=== PATIENT | female | born 1960 | race Caucasian/White ===

== ENCOUNTER 2023-02-06 10:20 | Outpatient (CLI) | payer MEDICAID, SELFPAY ==
[2023-02-06 10:46] VITALS: PULSE 102; RESP 18; O2SAT 96
[2023-02-06] MEDS: albuterol 2.5 mg/3 mL Neb INHALATION (10:46)
[2023-02-06 10:50] VITALS: PULSE 101
== END 2023-02-06 10:21 | disposition home or self-care (01) ==
LOC: RT 10:23
PROVIDERS: PCP Family Medicine; Visit Provider Thoracic Surgery (Cardiothoracic Vascular Surgery)
DX: J44.9 Chronic obstructive pulmonary disease, unspecified (principal); J98.8 Other specified respiratory disorders; F17.210 Nicotine dependence, cigarettes, uncomplicated
CPT/HCPCS: 94060; 94726; 94729; J7613

== ENCOUNTER 2024-02-10 07:52 | Outpatient (CLI) | payer MEDICAID, SELFPAY ==
--- NOTE | 2024-02-10 08:00 | PETR_ITS ---
PROCEDURE INFORMATION: Exam: PET/CT Skull Base to Mid-thigh Exam date and time: 02/10/2024 8:23 AM Age: 63 years old Clinical indication: Abnormal findings; Lump in abdomen; Additional info: Abnormal CT f/u LABS AND CLINICAL REPORTS: Glucose: 104 mg/dl Treatment strategy for malignancy (PET staging): Initial Staging (PI) TECHNIQUE: Imaging protocol: Following at least four-hour fasting and following the injection of radiopharmaceutical, low dose CT images were obtained. Then, PET images were obtained. Attenuation corrected images were constructed using the CT scan. Fused images of PET and CT were reviewed. The standardized uptake values (SUV) reported below are maximum values within a region of interest, expressed in gm/ml. Exam includes orbital meatal line to mid-thigh. Radiopharmaceutical: 14.26 mCi F-18 FDG (Fluorodeoxyglucose), IV. Time of imaging post radiopharmaceutical administration: 1 hour Injection site: right AC COMPARISON: CT abdomen pelvis w con* [id number] 08/08/2022 2:09 PM FINDINGS: Brain: Visualized brain has normal physiologic uptake. Pharynx: No abnormal uptake. Larynx: No abnormal uptake. Lungs, pleura and trachea: Emphysematous changes in the lungs. Heart: Normal physiologic uptake. Mediastinal space: No abnormal uptake. Liver: No abnormal uptake. Gallbladder and bile ducts: No abnormal uptake. Pancreas: No abnormal uptake. Spleen: No abnormal uptake. Adrenal glands: No abnormal uptake. Kidneys and ureters: Right extrarenal pelvis. Stomach and bowel: No abnormal uptake. Vasculature: No abnormal uptake. Lymph nodes: No abnormal uptake. No lymphadenopathy in the head, neck, chest, abdomen, pelvis, and extremities. Skeleton: No abnormal uptake in the visualized axial and appendicular skeleton. Soft tissues: There is again a fat containing hernia along the posterior right hemidiaphragm. No discrete mass. Small fat containing ventral abdominal hernia in the epigastric region. PET/PET skull to thigh INIT [id number] IMPRESSION: No FDG avid disease is identified.
== END 2024-02-10 07:53 | disposition home or self-care (01) ==
LOC: RAD 07:53
PROVIDERS: PCP Family Medicine; Visit Provider Internal Medicine Pulmonary Disease
DX: R91.1 Solitary pulmonary nodule (principal); J43.9 Emphysema, unspecified; K44.9 Diaphragmatic hernia without obstruction or gangrene; K43.9 Ventral hernia without obstruction or gangrene
CPT/HCPCS: 78815; A9552